=== PATIENT | male | born 1955 | race Caucasian/White ===

== ENCOUNTER → 2017-04-30 | Outpatient (CLI) | payer BC ==
[~2017-04-30] MED LIST: Will bring list DOS
== END | disposition home or self-care (01) ==
LOC: STAR 11:04
PROVIDERS: ATTEND Surgery
DX: Z01.818 Encounter for other preprocedural examination (principal)
CPT/HCPCS: 36415; 80053; 85025; 93005

== ENCOUNTER 2017-05-04 05:26 | Inpatient (IN) | payer BC ==
[2017-04-30 11:53] LABS: BASOPHILS # (AUTO) 0.02 x10^3/uL (0-0.1); BASOPHILS % (AUTO) 0 % (0-1); EOSINOPHILS # (AUTO) 0.07 x10^3/uL (0-0.4); EOSINOPHILS % (AUTO) 1 % (1-7); LYMPHOCYTES # (AUTO) 0.61 x10^3/uL (1-3.4); LYMPHOCYTES % (AUTO) 7 % (22-44); MD NO; MEAN CORPUSCULAR HEMOGLOBIN 32.8 pg (27.5-34.5); MEAN CORPUSCULAR HGB CONC 33.2 g/dL (33.2-36.2); MEAN PLATELET VOLUME 12.4 fL (7.4-10.4); MONOCYTES # (AUTO) 0.55 x10^3/uL (0.2-0.8); MONOCYTES % (AUTO) 6 % (2-9); NEUTROPHILS # (AUTO) 7.42 x10^3/uL (1.8-6.8); NEUTROPHILS % (AUTO) 86 % (42-75); PLATELET COUNT 159 x10^3/uL (130-400); RED BLOOD COUNT 3.89 x10^6/uL (4.38-5.82); RED CELL DISTRIBUTION WIDTH 16.5 % (9.4-14.8)
[2017-04-30 12:26] LABS: ALANINE AMINOTRANSFERASE 44 U/L (12-78); ALBUMIN 3.5 g/dL (3.4-5.0); ANION GAP 8 mmol/L (5-15); CALCIUM 8.8 mg/dL (8.5-10.1); CHLORIDE 115 mmol/L (98-107); CREATININE 1.08 mg/dL (0.7-1.3)
[2017-04-30 12:28] LABS: ALKALINE PHOSPHATASE 188 U/L (45-117); BILIRUBIN,TOTAL 1.4 mg/dL (0.2-1.0); TOTAL PROTEIN 7.3 g/dL (6.4-8.2)
[~2017-05-04] VITALS: Ht 170.2 cm; Wt 110.0 kg
[2017-05-04] MEDS ORDERED: LACTATED RINGERS 1,000 ML IV SCH (06:27)
[2017-05-04] MEDS ORDERED: ACETAMINOPHEN 500 MG TABLET PO ONE (06:30)
[2017-05-04] MEDS ORDERED: GABAPENTIN 300 MG CAPSULE PO ONE (06:30)
[2017-05-04 07:13] VITALS: BP 154/81
[2017-05-04] MEDS ORDERED: CLON0.1T PO (07:21)
[2017-05-04] MEDS ORDERED: INSU100V8 SQ (07:21)
[2017-05-04] MEDS ORDERED: AMLO5TAB2 PO (07:21)
[2017-05-04] MEDS ORDERED: INSU100C5 SQ-INSULIN (07:21)
[2017-05-04] MEDS ORDERED: METF500T4 PO (07:21)
[2017-05-04] MEDS ORDERED: OMEP40CA6 PO (07:21)
[2017-05-04] MEDS ORDERED: LISI-170 PO (07:21)
[2017-05-04] MEDS ORDERED: ROCURONIUM 10 MG/ML,10ML ONE (07:47)
[2017-05-04] MEDS ORDERED: PROPOFOL 10 MG/ML, 20ML ONE (07:47)
[2017-05-04] MEDS ORDERED: FENTANYL PF 250 MCG/5ML ONE (07:47)
[2017-05-04] MEDS ORDERED: MIDAZOLAM 1 MG/ML, 2ML ONE (07:47)
[2017-05-04] MEDS ORDERED: OXYcodone 5 MG/5 ML ORAL.SOL UDC PO PRN (08:00)
[2017-05-04] MEDS ORDERED: FENTANYL PF 100 MCG/2ML IV PRN (08:00)
[2017-05-04] MEDS ORDERED: hydrALAzine 20 MG/ML, 1ML IV PRN (08:00)
[2017-05-04] MEDS ORDERED: PROMETHAZINE 12.5 MG SUPP PR PRN (08:00)
[2017-05-04] MEDS ORDERED: LABETALOL 5MG/ML, 20ML IV PRN (08:00)
[2017-05-04] MEDS ORDERED: HYDROmorphone 1 MG/ML, 1ML IV PRN (08:00)
[2017-05-04] MEDS ORDERED: ACETAMINOPHEN 325 MG TABLET PO PRN (08:00)
[2017-05-04] MEDS ORDERED: morphine SULFATE 10 MG/ML, 1ML IV PRN (08:00)
[2017-05-04] MEDS ORDERED: ONDANSETRON 2MG/ML, 2ML IVPush PRN (08:00)
[2017-05-04] MEDS ORDERED: MEPERIDINE/PF 25MG/0.5ML IVPush PRN (08:00)
[2017-05-04] MEDS ORDERED: CEFOTETAN 2 GM ONE (08:33)
[2017-05-04] MEDS ORDERED: DEXAMETHASONE 4 MG/ML, 1ML ONE (08:45)
[2017-05-04] MEDS ORDERED: ONDANSETRON 2MG/ML, 2ML ONE (09:30)
[2017-05-04] MEDS ORDERED: FENTANYL PF 100 MCG/2ML ONE ×2 (09:43→10:26)
[2017-05-04] MEDS ORDERED: NEOSTIGMINE 1 MG/ML, 10ML ONE (09:50)
[2017-05-04] MEDS ORDERED: GLYCOPYRROLATE 0.4 MG/2 ML, 2ML ONE (09:50)
[2017-05-04] MEDS ORDERED: OXYcodone 5 MG/5 ML ORAL.SOL UDC ONE (10:26)
[2017-05-04] MEDS ORDERED: hydrALAzine 20 MG/ML, 1ML ONE (10:49)
[2017-05-04] MEDS ORDERED: HALOPERIDOL 5 MG/ML IVPush PRN (12:30)
[2017-05-04] MEDS ORDERED: LORazepam 2 MG/ML, 1ML IVPush PRN (12:30)
[2017-05-04] MEDS ORDERED: LORazepam 1MG TABLET PO PRN (12:30)
[2017-05-04] MEDS ORDERED: DIPHENHYDRAMINE 25 MG CAPSULE PO PRN (12:30)
[2017-05-04] MEDS ORDERED: DIPHENHYDRAMINE 50 MG/ML, 1ML IVPush PRN (12:30)
[2017-05-04] MEDS ORDERED: DEXAMETHASONE 4 MG/ML, 1ML IVPush PRN (12:30)
[2017-05-04] MEDS ORDERED: OXYcodone IR 5MG TABLET PO PRN (12:30)
[2017-05-04] MEDS ORDERED: ONDANSETRON 2MG/ML, 2ML IV PRN (12:30)
[2017-05-04] MEDS ORDERED: D5%-0.45NACL+KCL 20MEQ 1,000 ML IV SCH (12:30)
[2017-05-04] MEDS ORDERED: CALCIUM CARBONATE 500 MG TAB.CHEW PO PRN (12:30)
[2017-05-04 12:44] VITALS: BP 149/73
[2017-05-04] MEDS: ACETAMINOPHEN 500 MG TABLET PO SCH ×2 (13:02→18:30)
[2017-05-04] MEDS: IBUPROFEN 800 MG TABLET PO SCH ×2 (16:00→21:00)
[2017-05-04] MEDS: INSULIN LISPRO 100 UNITS/ML, PEN MEDIUM DOSE SS SQ-INSULIN SCH ×2 (16:27→21:29)
[2017-05-04 16:50] VITALS: BP 196/69
[2017-05-04] MEDS ORDERED: AMLODIPINE 5 MG TABLET ONE (17:08)
[2017-05-04] MEDS ORDERED: AMLODIPINE 5 MG TABLET PO ONE (17:30)
[2017-05-04 17:41] VITALS: BP 192/75
[2017-05-04 19:06] VITALS: BP 186/74
[2017-05-04] MEDS: INSULIN GLARGINE 100 UNITS/ML, PEN SQ-INSULIN SCH (21:30)
[2017-05-05 00:19] VITALS: BP 170/76
[2017-05-05] MEDS: ACETAMINOPHEN 500 MG TABLET PO SCH ×4 (00:45→18:43)
[2017-05-05] MEDS: HEPARIN 5,000 UNITS/ML, 1ML SQ SCH ×3 (04:10→20:54)
[2017-05-05 06:04] LABS: CHLORIDE 113 mmol/L (98-107)
[2017-05-05 06:10] LABS: ANION GAP 8 mmol/L (5-15); CALCIUM 8.6 mg/dL (8.5-10.1); CREATININE 1.08 mg/dL (0.7-1.3)
[2017-05-05 06:35] VITALS: BP 167/73
[2017-05-05 07:26] VITALS: BP 177/74
[2017-05-05] MEDS: AMLODIPINE 5 MG TABLET PO SCH (07:36)
[2017-05-05] MEDS: OMEPRAZOLE 20 MG CAPSULE.DR PO SCH (07:36)
[2017-05-05] MEDS: IBUPROFEN 800 MG TABLET PO SCH ×4 (07:37→20:55)
[2017-05-05] MEDS: INSULIN LISPRO 100 UNITS/ML, PEN MEDIUM DOSE SS SQ-INSULIN SCH ×4 (07:37→21:01)
[2017-05-05 07:51] LABS: MEAN CORPUSCULAR HEMOGLOBIN 33.1 pg (27.5-34.5); MEAN CORPUSCULAR HGB CONC 33.5 g/dL (33.2-36.2); MEAN CORPUSCULAR VOLUME 99.1 fL (81-97); RED BLOOD COUNT 3.63 x10^6/uL (4.38-5.82); RED CELL DISTRIBUTION WIDTH 15.7 % (9.4-14.8)
[2017-05-05 08:10] LABS: BASOPHILS % (AUTO) 0 % (0-1); EOSINOPHILS % (AUTO) 1 % (1-7); LYMPHOCYTES # (AUTO) 0.72 x10^3/uL (1-3.4); LYMPHOCYTES % (AUTO) 6 % (22-44); MD SCAN; MEAN PLATELET VOLUME 10.8 fL (7.4-10.4); MONOCYTES # (AUTO) 0.72 x10^3/uL (0.2-0.8); MONOCYTES % (AUTO) 6 % (2-9); NEUTROPHILS # (AUTO) 9.79 x10^3/uL (1.8-6.8); NEUTROPHILS % (AUTO) 86 % (42-75); PLATELET COUNT 140 x10^3/uL (130-400)
[2017-05-05 14:15] VITALS: BP 171/73
[2017-05-05] MEDS: INSULIN GLARGINE 100 UNITS/ML, PEN SQ-INSULIN SCH (21:02)
[2017-05-05 21:59] VITALS: BP 163/78
[2017-05-06] MEDS: ACETAMINOPHEN 500 MG TABLET PO SCH ×4 (00:53→18:17)
[2017-05-06] MEDS: HEPARIN 5,000 UNITS/ML, 1ML SQ SCH ×3 (03:23→20:00)
[2017-05-06 03:41] VITALS: BP 171/78
[2017-05-06 05:16] LABS: ANION GAP 8 mmol/L (5-15); CALCIUM 8.2 mg/dL (8.5-10.1); CHLORIDE 118 mmol/L (98-107)
[2017-05-06 05:18] LABS: CREATININE 0.99 mg/dL (0.7-1.3)
[2017-05-06 05:28] LABS: MEAN CORPUSCULAR HEMOGLOBIN 33.7 pg (27.5-34.5); MEAN CORPUSCULAR HGB CONC 33.7 g/dL (33.2-36.2); MEAN CORPUSCULAR VOLUME 99.8 fL (81-97); RED BLOOD COUNT 3.29 x10^6/uL (4.38-5.82)
[2017-05-06 06:06] LABS: MEAN PLATELET VOLUME 14.2 fL (7.4-10.4); PLATELET COUNT 95 x10^3/uL (130-400)
[2017-05-06 06:08] LABS: BASOPHILS # (AUTO) 0.03 x10^3/uL (0-0.1); BASOPHILS % (AUTO) 0 % (0-1); EOSINOPHILS # (AUTO) 0.11 x10^3/uL (0-0.4); EOSINOPHILS % (AUTO) 2 % (1-7); LYMPHOCYTES # (AUTO) 0.71 x10^3/uL (1-3.4); LYMPHOCYTES % (AUTO) 12 % (22-44); MD SCAN; MONOCYTES # (AUTO) 0.67 x10^3/uL (0.2-0.8); MONOCYTES % (AUTO) 11 % (2-9); NEUTROPHILS % (AUTO) 74 % (42-75)
[2017-05-06] MEDS: INSULIN LISPRO 100 UNITS/ML, PEN MEDIUM DOSE SS SQ-INSULIN SCH ×4 (06:25→20:23)
[2017-05-06 08:34] VITALS: BP 169/73
[2017-05-06] MEDS: AMLODIPINE 5 MG TABLET PO SCH (08:43)
[2017-05-06] MEDS: IBUPROFEN 800 MG TABLET PO SCH ×3 (08:43→20:22)
[2017-05-06] MEDS: OMEPRAZOLE 20 MG CAPSULE.DR PO SCH (08:43)
[2017-05-06] MEDS ORDERED: FLU VACC QS2017-18 (36MOS+) UP/PF 0.5 ML IM-VACC ONE (11:00)
[2017-05-06] MEDS ORDERED: PNEUMOCOCCAL 23 VACCINE IM-VACC ONE (11:00)
[2017-05-06 13:22] VITALS: BP 128/66
[2017-05-06 20:12] VITALS: BP 193/76
[2017-05-06] MEDS: INSULIN GLARGINE 100 UNITS/ML, PEN SQ-INSULIN SCH (20:22)
[2017-05-06] MEDS ORDERED: OXYC-302 PO (20:37)
[2017-05-06 21:13] VITALS: BP 187/72
== END 2017-05-06 21:25 | disposition home or self-care (01) | DRG 331 ==
LOC: ORIP 05:26 → 4NOR 11:30
PROVIDERS: ADMIT Surgery; ATTEND Surgery
PROC: 0WQF0ZZ Repair Abdominal Wall, Open Approach (ICD-10-PCS; 2017-05-04)
PROC: 0DBB0ZZ Excision of Ileum, Open Approach (ICD-10-PCS; principal; 2017-05-04 08:45)
DX: Z43.2 Encounter for attention to ileostomy (principal); E11.9 Type 2 diabetes mellitus without complications; I10 Essential (primary) hypertension; Z85.048 Personal history of other malignant neoplasm of rectum, rectosigmoid junction, and anus
CPT/HCPCS: 36415; 80048; 80053; 82962; 85025; 88302; J1100; J1644; J2250; J2405; J2704; J2710; J3010; J0360; J1815; J7120; S0074